=== PATIENT | female | born 1945 ===

== ENCOUNTER 2021-03-23 07:11 | Emergency (ER) | payer SELFPAY ==
[2021-03-23 07:23] VITALS: BP 149/82; PULSE 75; RESP 14; O2SAT 98; BMI 24.5
[2021-03-23 07:32] VITALS: BP 174/84; PULSE 73; RESP 15; TEMP 36.7; O2SAT 99
--- NOTE | 2021-03-23 08:02 | ED_ITS ---
HPI - General Adult General Chief complaint: General Medical Stated complaint: high blood pressure Time Seen by Provider: 03/23/21 08:02 Source: patient Mode of arrival: ambulatory Limitations: no limitations History of Present Illness HPI narrative: This is 75 years old the female well known to us from multiple ED visit complaining of anxiety she states she took an extra metoprolol she is concerned about blood pressure Onset (ago): hour(s) (2) Radiation: non-radiation Severity: moderate Review of Systems Review of Systems: Yes all other systems are reviewed and are negative Constitutional: Constitutional: Reports no additional constitutional complaints Eyes: Eyes: Reports no additional eye complaints ENT: Reports system reviewed and no additional complaints, except as documented Cardiovascular: Cardiovascular: Reports no additional cardiovascular complaints Musculoskeletal: Musculoskeletal: Reports no additional musculoskeletal complaints Neurologic: Reports Abnormal speech present Psychiatric: Psychiatric: Reports anxiety [facility] Past Medical History Attestation statement: The following information was validated with the patient. [facility] Narrative: Patient has history of anxiety hypertension multiple ED visit Social History Social History Advance Directives: Yes Advance Directives Information Provided: Yes Advance Directives on File: No Physical Exam Vital Signs: Vital Signs: Last Vital Signs Temp 98.0 F 03/23/21 07:32 Pulse 73 03/23/21 07:32 Resp 15 03/23/21 07:32 BP 174/84 H 03/23/21 07:32 Pulse Ox 99 03/23/21 07:32 Body Mass Index 24.5 Patient appear well she is not in distress anxious Const: General: cooperative Orientation/consciousness: oriented to person, oriented to place, oriented to time and patient oriented x3 HENMT: Head: Yes normal to inspection General nose exam: Normal external nose present Face and sinus: Yes normal facial exam Mouth: Normal oral and palatal mucosa present Eyes: General: appearance normal, both eyes and all related structures Neck: Neck: Yes normal visual inspection Chest: Chest palpation & inspection: normal inspection of the chest Resp: Effort & Inspection: normal respiratory effort Auscultation: clear to auscultation bilaterally Cardio: Jugular venous distension: no JVD Rate: regular rate and not bradycardic Rhythm: regular rhythm GI: Inspection: Yes normal to inspection Palpation (GI): Soft to palpation, not firm, nontender, no guarding and not rigid : General: Yes no CVA tenderness Back/Spine/Pelvis: Back: no CVA tenderness Skin: General skin exam: no rashes or lesions noted Neuro: General: oriented to person, oriented to place, oriented to time, patient oriented x3 and gait normal Cranial nerves: Yes CN's II-XII intact bilaterally Cognition (Neuro): normal cognition Speech: Abnormal speech present Gait exam (Neuro): Normal gait present Motor exam (neuro): 5/5 motor strength present throughout Medical Decision Making MDM Narrative Medical decision making narrative: This is a 75 years old the we multiple ED visits this severe anxiety, at this point she has no bradycardic blood pressure okay with discharge home Discharge Plan Discharge Clinical Impression: Anxiety Patient Disposition: Home, Self-Care Instructions: Anxiety (ED) Additional Instructions: Follow-up with your primary care physician or return if you worse Referrals: Physician,Unknown [Primary Care Provider] - 2 days
[2021-03-23 08:07] VITALS: BP 180/84; PULSE 73
== END 2021-03-23 08:08 | disposition home or self-care (01) ==
PROVIDERS: Emergency Provider Emergency Medicine
DX: F41.9 Anxiety disorder, unspecified (principal); I10 Essential (primary) hypertension; Z79.899 Other long term (current) drug therapy
CPT/HCPCS: 99283